=== PATIENT | male | born 1975 | race Caucasian/White ===

== ENCOUNTER 2018-12-17 02:12 | Outpatient (CLI) | payer BC, SELFPAY ==
[2018-12-18 15:58] LABS: T3,Free 3.7 pg/ml (2.8-5.3)
== END 2018-12-17 02:32 ==
PROVIDERS: PCP Family Medicine; Visit Provider Family Medicine
DX: R79.89 Other specified abnormal findings of blood chemistry (principal); E03.9 Hypothyroidism, unspecified
CPT/HCPCS: 36415; 84481

== ENCOUNTER 2019-07-18 02:15 | Outpatient (CLI) | payer BC, SELFPAY ==
[2019-07-18 17:28] LABS: T3,Free 4.2 pg/mL (2.8-5.3)
== END 2019-07-18 02:35 ==
PROVIDERS: PCP Family Medicine; Visit Provider Family Medicine
DX: E07.89 Other specified disorders of thyroid; R79.89 Other specified abnormal findings of blood chemistry
CPT/HCPCS: 36415; 84481

== ENCOUNTER 2020-08-21 03:30 | Outpatient (CLI) | payer BC, SELFPAY ==
[2020-08-21 11:59] LABS: Hemoglobin A1C 5.9 % (<5.7)
[2020-08-21 12:20] LABS: Calculated LDL 148 mg/dL (<100); Cholesterol 211 mg/dL (<200); HDL Cholesterol 45 mg/dL (40-60); TSH (W/Ref FT4) 0.49 uIU/mL (0.36-3.74); Triglyceride 92 mg/dL (<150)
== END 2020-08-21 03:31 | disposition home or self-care (01) ==
LOC: LBO 03:30
PROVIDERS: PCP Nurse Practitioner; Visit Provider Nurse Practitioner
DX: E03.9 Hypothyroidism, unspecified (principal); Z13.1 Encounter for screening for diabetes mellitus; Z13.220 Encounter for screening for lipoid disorders
CPT/HCPCS: 36415; 80061; 83036; 84443

== ENCOUNTER → 2020-12-20 10:34 | Outpatient (CLI) | payer BC, SELFPAY ==
--- NOTE | 2020-12-20 10:45 | DI.RAD_ITS ---
Exam(s) XR ELBOW RT COMPLETE EXAM: XR ELBOW RT COMPLETE CLINICAL HISTORY: bursitis. TECHNIQUE: 2D digital imaging was performed. COMPARISON: No exams were available for comparison FINDINGS: There is no evidence of fracture or elbow joint effusion. However, there is significant abnormal sof t tissue swelling posterior to the elbow joint and extending down the dorsal aspect of the forearm, e ither posttraumatic or inflammatory. There is no radiopaque foreign body no radiographic evidence of osteomyelitis. IMPRESSION: Prominent dorsal soft tissue swelling at and below the level of the olecranon bursa. No fracture evident. No obvious elbow joint effusion DATA REPOSITORY: RADIATION DOSE DELIVERED:
--- NOTE | 2020-12-20 11:45 | DI.VRAD_ITS ---
PROCEDURE INFORMATION: Exam: XR Right Elbow Exam date and time: 12/20/2020 10:55 AM Age: 45 years old Clinical indication: Other: 3 TECHNIQUE: Imaging protocol: XR Right elbow. Views: 3 or more views. COMPARISON: No relevant prior studies available. FINDINGS: Bones/joints: There is mild joint effusion suspected. No acute fracture or dislocation. Soft tissues: There is a moderate posterior elbow soft tissue swelling. IMPRESSION: 1. No definite acute fracture or dislocation. 2. Soft tissue swelling of the elbow. Dictated and Authenticated by: August Rivero MD. Ordering:LIZA Damon MD
== END ==
PROVIDERS: PCP Nurse Practitioner; Visit Provider Nurse Practitioner Family
DX: M79.89 Other specified soft tissue disorders (principal)
CPT/HCPCS: 73080

== ENCOUNTER 2020-12-20 16:02 | Outpatient (REF) | payer BC, SELFPAY ==
[2020-12-20 16:32] LABS: Abs Immature Grans 0.05 10^3/uL (0.0-0.06); Absolute Basophil Count 0.05 10^3/uL (0.0-0.2); Absolute Eosinophil Count 0.64 10^3/uL (0.0-0.7); Absolute Lymphocyte Count 2.97 10^3/uL (1.2-3.4); Absolute Monocyte Count 0.64 10^3/uL (0.1-0.8); Absolute Neutrophil Count 5.64 10^3/uL (1.2-6.7); Basophils % 0.5; Eosinophils % 6.4; HCT 45.2 % (40.0-50.0); Immature Grans % 0.5; Lymphocytes % 29.7; MCH 31.5 pg (27.0-33.0); MCHC 33.2 % (32.0-36.0); MPV 10.2 fL (8.0-11.0); Monocytes % 6.4; Neutrophils % 56.5; Nucleated RBC 0 %; Platelet Count 316 10^3/uL (130-400); RBC 4.76 10^6/uL (4.36-5.78); RDW 12.4 % (11.8-14.1); RDW-SD 43.2 fL; WBC 9.99 10^3/uL (4.4-10.8)
[2020-12-20 16:34] LABS: ESR 11 mm/hr (0-15)
[2020-12-20 16:39] LABS: C-Reactive Protein 0.27 mg/dL (0.0-0.3); Glucose 98 mg/dL (74-106)
== END 2020-12-20 16:03 | disposition home or self-care (01) ==
LOC: LBN 16:02
PROVIDERS: PCP Nurse Practitioner; Visit Provider Nurse Practitioner Family
DX: M70.31 Other bursitis of elbow, right elbow (principal); R73.09 Other abnormal glucose; M71.88 Other specified bursopathies, other site
CPT/HCPCS: 82947; 85652; 85025; 86140

== ENCOUNTER 2021-07-01 09:54 | Outpatient (REF) | payer BC, SELFPAY ==
[2021-07-02 13:20] LABS: COVID-19 RT-PCR UVMMC Result Negative (Negative)
== END 2021-07-01 09:55 | disposition home or self-care (01) ==
LOC: LBN 09:54
PROVIDERS: PCP Nurse Practitioner; Visit Provider Family Medicine
DX: Z20.822 Contact with and (suspected) exposure to COVID-19 (principal); J02.9 Acute pharyngitis, unspecified
CPT/HCPCS: U0003

== ENCOUNTER 2022-02-18 03:26 | Outpatient (CLI) | payer BC, SELFPAY ==
[2022-02-18 11:21] LABS: Hemoglobin A1C 5.8 % (<5.7)
[2022-02-18 11:59] LABS: Calculated LDL 149 mg/dL (<100); Cholesterol 223 mg/dL (<200); HDL Cholesterol 51 mg/dL (40-60); TSH (W/Ref FT4) 1.06 uIU/mL (0.36-3.74); Triglyceride 116 mg/dL (<150)
== END 2022-02-18 03:27 | disposition home or self-care (01) ==
LOC: LBO 03:26
PROVIDERS: PCP Nurse Practitioner; Visit Provider Nurse Practitioner
DX: R73.03 Prediabetes (principal)
CPT/HCPCS: 36415; 80061; 83036; 84443

== ENCOUNTER 2022-10-29 11:54 | Day surgery (SDC) | payer BC, SELFPAY ==
--- NOTE | 2022-10-28 20:24 | PDOC.DSDIS_ITS ---
Date of service: 10/29/22 Time of Service: 13:49 Discharge Plan Disposition Patient Disposition: Home Condition: Good Discharge Details Reason For Visit: colon scope Attending Provider: Leonie Pringle Primary Care Provider: Connie Montanez Home Meds and New Rx's Prescriptions: Continued levothyroxine 175 mcg tablet 175 mcg PO DAILY Qty: 90 4RF venlafaxine 75 mg capsule,extended release 24hr 75 mg PO DAILY Qty: 90 4RF sildenafil (pulm.hypertension) 20 mg tablet 20 mg PO DAILY PRN (Reason: sexual activity) Qty: 14 3RF glucosamine sulfate [Glucosamine] 500 mg tablet 500 mg PO DAILY Rx Instructions: administer with a meal multivitamin 1 EACH tablet 1 ea PO DAILY Discontinued bisacodyl [Dulcolax (bisacodyl)] 5 mg tablet,delayed release (DR/EC) 5 mg PO ONCE Qty: 4 0RF Rx Instructions: Take according to provider's instructions for colonoscopy prep. polyethylene glycol 3350 17 gram/dose powder 17 g PO ONCE Qty: 238 0RF Rx Instructions: To be taken as directed by prescriber's office for colonoscopy prep. Discharge Instructions Additional Instructions: D[facility] Colonoscopy Post- Op Instructions Instructions for Everyone who is given Anesthesia: For your safety, please do the following for the next twenty-four (24) hours: *Do Not operate a motor vehicle (car, truck, motorcycle, etc.) *Do Not drink alcoholic beverages or use any recreational drugs for the first 24 hours or while taking pain medications. The medications in your body may have a reaction that can be dangerous. *Do Not make any important decisions or sign any important papers. Findings: diverticuli- mild. Make sure you are moving your bowels on a regular basis and not straining. If you find that you do have some constipation, I recommend you start a fiber supplement daily such as Metamucil. small polyp Follow up: My office will send a letter with the results of the pathology report, and when to repeat the colonoscopy, most likely 7 years time. 1. No lifting over 20 pounds or strenuous activity for the first 24 hours after your procedure. After 24 hours there are no restrictions on your activity but you may feel fatigued for a few days. 2. After you arrive home you may have a light meal and return to your normal diet as you can tolerate it without feeling sick to your stomach. 3. You may have a bloated, gaseous feeling in your belly (abdomen) after a colonoscopy. Passing gas and belching will help. Walking or lying down on your left side with your knees flexed may relieve the discomfort. Call the office at [phone] (Office) or [phone] (Hospital) right away if you notice any of the following: a.Vomiting of blood or ?coffee ground stools?. b.Rectal bleeding 1Tbsp, blood clots or continuous bleeding. c.Severe belly (abdominal) pain. d.A hard distended belly (abdomen) and an inability to pass gas. 4. Please don?t expect to have a normal BM (bowel movement) for 2-3 days after your procedure. 5. If there are questions regarding the findings of your procedure, please contact your doctor 6. If you are unable to contact your doctor with a problem, contact the hospital at [phone]. 7. Continue all your regular medications unless directed otherwise. I understand the above instructions and have no questions. Signature of Patient or Adult Escort Name of Responsible Adult Escort Signature of Nurse Date/Time Activity:: see above Diet:: see above Discharge Orders Discharge Orders: Discharge Order (Routine); Ordered 10/29/22 Ordered By: Leonie Pringle DS: Diagnosis Discharge Diagnosis (1) Screening for colon cancer: Status: Acute Asessment and Plan: The patient is seen and examined after their colonoscopy.? The patient has been able to pass gas.? They are not having abdominal pain.? They have been able to tolerate liquids and a snack.? They do not have any nausea or vomiting.? They are not having any chest pain or shortness of breath.??? They are not having any rectal bleeding..? Their vital signs have been stable-see nursing notes. We discussed findings during their colonoscopy, and any biopsies that were done/polyps that were removed. The patient will be sent a letter with any biopsy results, and when to repeat the colonoscopy.-see discharge instructions. Patient was given explicit instructions to follow-up regarding colonoscopy-refer to discharge instructions.? We reviewed resumption of medications. Patient verbalized understanding and discharged in stable and satisfactory condition- See nursing notes. (2) Personal history of nicotine dependence: Status: Acute (3) Hypothyroidism: Status: Chronic (4) Prediabetes: Status: Acute (5) Hyperlipidemia: Status: Acute
--- NOTE | 2022-10-29 08:53 | W.COLOREPORT ---
Date of service: 10/29/22 Time of Service: 08:53 Colonoscopy Report Date of procedure: 10/29/22 Pre-op diagnosis general: CRC screening Post-op diagnosis procedure note: other (x1 polyp and minor diverticula ) Surgeon: Leonie Pringle Anesthesia Type: General:No Airway Estimated blood loss (mL): 1 Pathology: other Complications: None Disposition: same day Prep: Miralax/Dulcolax Retraction Time: 13 Procedure Description: After informed consent was obtained the patient was taken to the procedure room and placed in a left decubitous position. Monitors were applied and a time out was done. The patients name, date of , procedure, allergies to medications and metal in their body was reviewed. The patient was then sedated. Once sedated and comfortable a rectal exam was done. External exam was normal. Internal exam revealed a normal sphincter tone and no palpable masses. The prostate nl. The scope was then introduced and retrofelexed. No internal hemorrhoids were identified. The scope was then advanced to the cecum without difficulty. The TI and appendiceal orifice were identified. The prep was BBPS 3 in all segments for a total of 9. The scope was then slowly retracted over 13 minutes back into the rectum. Polyps were removed at x1 polyp removed at 40 cm. It was a flat 5 mm polyp. All specimen is retrieved and no bleeding is noted. He has a few small scattered diverticula in the sigmoid colon. It is very minor disease. There are no signs of active bleeding or infection. The mucosa is pink and healthy with a normal vascular pattern. The scope was removed and the patient was woken up and taken back to Same day surgery in stable condition. The patient tolerated the procedure well and there were no immediate complications. Follow up: The patient should follow up in 7-10 years unless they develop changes in bowel habits or other new gastrointestinal complaints.
[2022-10-29 12:07] VITALS: BP 125/78; PULSE 55; RESP 17; TEMP 36.4; O2SAT 98
[2022-10-29] MEDS: Lactated Ringers 1,000 ML 80 ML IV (12:41)
--- NOTE | 2022-10-29 12:51 | W.ANESPRE ---
General Info Date of Service Date Performed: 10/29/22 Height: 6 ft 3 in Weight: 87.5 kg Body Mass Index (BMI): 24.0 Surgical Procedure: Operation Date: 10/29/22 12:20 Proposed Procedure Side Surgeon den Pringle, Meds Allergies and Home Medications Allergies Allergy/AdvReac Type Severity Reaction Status Date / Time No Known Allergies Allergy Verified 10/29/22 12:19 Home Medication Medication Instructions Recorded multivitamin 1 ea PO DAILY 03/29/13 levothyroxine 175 mcg tablet 175 mcg PO DAILY #90 tab-caps 09/06/22 sildenafil (pulm.hypertension) 20 20 mg PO DAILY PRN sexual activity 09/06/22 mg tablet #14 tabs venlafaxine 75 mg capsule,extended 75 mg PO DAILY #90 caps 09/06/22 release 24 hr glucosamine sulfate 500 mg tablet 500 mg PO DAILY 10/21/22 (Glucosamine) Current Visit Medications: Current Medications Generic Name Dose Route Start Last Admin Trade Name Freq PRN Reason Stop Dose Admin Hyoscyamine Sulfate 0.125 mg 10/29/22 08:23 Hyoscyamine 0.125 Mg Sl/Oral/Chew SL DIRECTED PRN Ringer's Solution 1,000 mls @ 80 mls/hr 10/29/22 06:00 10/29/22 12:41 IV 10/29/22 23:59 80 mls/hr INFUSION PAT Administration IV Miscellaneous Supplies 1 each 10/29/22 06:00 Iv Access IV 10/29/22 23:59 DIRECTED PAT Ondansetron HCl 4 mg 10/29/22 08:23 Ondansetron 4 Mg/2 Ml Vial IVP Q4H PRN PRN Nausea / Vomiting Sodium Chloride 0 ml 10/29/22 06:00 Normal Saline Flush 10 Ml Syr IV 10/29/22 23:59 PRN PRN Sodium Chloride 0 ml 10/29/22 06:00 Normal Saline 10 Ml Vial IJ 10/29/22 23:59 DIRECTED PRN Sterile Water 0 ml 10/29/22 06:00 Water,Injection,Sterile 10 Ml Vial IJ 10/29/22 23:59 DIRECTED PRN PFSH Active Problems Active Problems: Problem Status Onset Code Screening for colon cancer Z12.11 Personal history of nicotine dependence Z87.891 Hypothyroidism E03.9 Depressive disorder F32.9 Anxiety F41.9 Erectile dysfunction N52.9 Prediabetes R73.03 Hyperlipidemia E78.5 Medical History Medical History Disruption of wound, unspecified, initial encounter (05/26/17) Tobacco Smoking/Tobacco Use Status: Current every day Tobacco Type: smokeless tobacco Smokeless tobacco user: snuff Passive smoking exposure: Yes Second hand exposure: Yes Alcohol Alcohol Intake: current Alcohol intake frequency: a few times a month Alcohol type: beer Substance Use Substance use: Daily Substance use type: marijuana Vital Signs and Lab Results Vital Signs Most Recent Vital Signs in EMR: Most Recent Vital Signs Temp Pulse Resp BP Pulse Ox 36.4 C L 55 L 17 125/78 98 10/29/22 12:07 10/29/22 12:07 10/29/22 12:07 10/29/22 12:07 10/29/22 12:07 Lab Results Blood Type / Crossmatch: No Data to Display Complete Blood Count: No Data to Display Complete Metabolic Panel: No Data to Display Liver Function Panel: No Data to Display Coagulation Panel: No Data to Display Cardiac Panel: No Data to Display Arterial Blood Gas: No Data to Display Venous Blood Gas: No Data to Display Pancreas Panel: No Data to Display Thyroid Panel: No Data to Display Infectious Disease: No Data to Display Blood Cultures: No Data to Display Toxicology Panel: No Data to Display Anesthesia Assessment and Plan Anesthesia History Personal History: No History of Anesthesia Complications Family History: No Family History of Anesthesia Complications Exercise Tolerance Exercise Tolerance: Metabolic Equivalents>4 Pertinent Negatives Pertinent Negatives: No Symptoms of GERD Cardiac & Pulmonary Exam Cardiac Exam: Normal S1/S2 Heart Sounds Pulmonary Exam: Clear Bilateral Breath Sounds Implantable Cardiac Device Does patient have a Pacemaker or an ICD?: No Airway Exam Known Difficult Airway: No Mallampati Class: 2 Mouth Opening: Normal (> 3cm) Thyromental Distance: Greater than 3 cm Neck Range of Motion: Full ROM Neck Circumference: Normal Teeth Condition: Normal Dentition ASA Classification ASA Score: ASA 2 Emergency Case?: No NPO Status NPO Status: NPO Clears >2 hours, Solids >8 hours Anesthesia Plan Resuscitation Status: Full Code Anesthesia Technique: General Anesthesia Airway Planned: Natural Airway Monitors Used: Standard Monitors
[2022-10-29 12:54] VITALS: BMI 24.0
--- NOTE | 2022-10-29 13:25 | BOWEL_PTH ---
PATIENT: Siddharth Scott LOC: [facility] U#:[id number] AGE/SX: 47/M ROOM: RE10/29/[address]: Leonie Pringle : 1975 BED: DIS: 10/29/2022 SPEC #: [id number] RECD: 10/29/22 17:36 STATUS: SABRINA RE #: [id number] FERNANDO: 10/29/22 13:[address]: Leonie rPingle DEPT: Surgical Specimen RECD BY: Soledad Hussein ENTERED: 10/29/22 17:36 SP TYPE: Bowel OTHR DR: Connie Montanez, SCALER Tissues: 1 - BIOPSY BOWEL Procedures: GROSS AND MICRO LEVEL 4 Comments: [id number]
[2022-10-29 13:32] VITALS: BP 114/89; PULSE 53; RESP 16; TEMP 36.6; O2SAT 100
--- NOTE | 2022-10-29 13:44 | W.ANESPOSTOP ---
Postoperative Evaluation Date, Time and Location Date Performed: 10/29/22 Time Performed: 13:44 Patient Location: Day Surgery Unit Vital Signs Most Recent Imported Vital Signs: Most Recent Vital Signs Temp Pulse Resp BP Pulse Ox 36.6 C 53 L 16 114/89 100 10/29/22 13:32 10/29/22 13:32 10/29/22 13:32 10/29/22 13:32 10/29/22 13:32 Pain Score Most Recent Pain Score: Most Recent Pain Score Pain Level 0 10/29/22 13:32 Assessment Mental Status: Awake (Alert & Oriented to Patient Baseline) Airway and Respiratory Function: Patent airway with normal (patient baseline) respiratory exam Cardiovascular Function: Hemodynamically Stable Hydration Status: Adequately Hydrated Nausea & Vomiting: No Nausea or Vomiting Pain: Pt. Denies Any Pain Peripheral Nerve Block: Patient did not receive a nerve block
[2022-10-29 14:05] VITALS: BP 124/84; PULSE 90; RESP 16; TEMP 36.1; O2SAT 96
== END 2022-10-29 14:24 | disposition home or self-care (01) ==
PROVIDERS: PCP Nurse Practitioner Family; Visit Provider Surgery
PROC: 0DJD8ZZ Inspection of Lower Intestinal Tract, Via Natural or Artificial Opening Endoscopic (ICD-10-PCS; CPT 45378; principal; 2022-10-29 12:15)
DX: Z12.11 Encounter for screening for malignant neoplasm of colon (principal); K63.5 Polyp of colon; K57.30 Diverticulosis of large intestine without perforation or abscess without bleeding; K63.89 Other specified diseases of intestine
CPT/HCPCS: 45380; 88305; J2250

== ENCOUNTER 2022-12-31 01:06 | Outpatient (CLI) | payer BC, SELFPAY ==
--- NOTE | 2022-12-31 07:55 | DI.RAD_ITS ---
Exam(s) XR ELBOW RT COMPLETE EXAM: XR ELBOW RT COMPLETE CLINICAL HISTORY: right elbow pain, M25.521. TECHNIQUE: 2D digital imaging was performed. Three views. COMPARISON: CR,XR XR ELBOW RT COMPLETE from 12/20/2020 FINDINGS: BONES: No acute fracture is present. No bony destructive lesion is seen. JOINTS: The elbow is normally aligned. No joint effusion is seen. No joint space narrowing. SOFT TISSUE: Normal. IMPRESSION: Unremarkable radiographs of the right elbow. DATA REPOSITORY: RADIATION DOSE DELIVERED:
== END 2022-12-31 01:26 ==
LOC: DI 01:06
PROVIDERS: PCP Nurse Practitioner Family; Visit Provider Nurse Practitioner Family
DX: M25.521 Pain in right elbow (principal)
CPT/HCPCS: 73080

== ENCOUNTER 2022-12-31 10:47 | Outpatient (CLI) | payer BC, SELFPAY ==
[2022-12-31 09:09] LABS: TSH (W/Ref FT4) 0.47 uIU/mL (0.36-3.74)
== END 2022-12-31 10:48 | disposition home or self-care (01) ==
LOC: LBO 10:47
PROVIDERS: PCP Nurse Practitioner Family; Visit Provider Nurse Practitioner Family
DX: E03.9 Hypothyroidism, unspecified (principal)
CPT/HCPCS: 36415; 84443

== ENCOUNTER 2023-07-13 13:14 | Outpatient (REF) | payer BC, SELFPAY | END 2023-07-13 13:15 | disposition home or self-care (01) | LOC: LBN 13:14 | PROVIDERS: PCP Nurse Practitioner Family; Visit Provider Physician Assistant | DX: J02.9 Acute pharyngitis, unspecified (principal) | CPT/HCPCS: 87070 ==

== ENCOUNTER 2023-09-12 08:26 | Outpatient (CLI) | payer BC, SELFPAY ==
[2023-09-12 12:31] LABS: HCT 44.5 % (40.0-50.0); HGB 15.3 g/dL (13.5-17.5); MCH 31.4 pg (27.0-33.0); MCHC 34.4 % (32.0-36.0); MCV 91 fL (80-95); MPV 9.9 fL (8.0-11.0); Platelet Count 349 10^3/uL (130-400); RBC 4.87 10^6/uL (4.36-5.78); RDW 12.6 % (11.8-14.1); RDW-SD 41.6 fL; WBC 12.79 10^3/uL (4.4-10.8)
[2023-09-12 12:59] LABS: ALT 52 U/L (16-63); AST 24 U/L (15-37); Albumin 4.1 g/dL (3.4-5.0); Alkaline Phosphatase 54 U/L (46-116); Anion Gap 11.4 mmol/L (3-11); BUN 14 mg/dL (7-18); Bilirubin, Total 0.3 mg/dL (0.2-1.0); CO2 24.6 mmol/L (21.0-32.0); CREATININE 1.1 mg/dL (0.70-1.30); Calcium 9.4 mg/dL (8.5-10.1); Calculated LDL 160 mg/dL (<100); Chloride 104 mmol/L (98-107); Cholesterol 237 mg/dL (<200); Estimated GFR 81.78 (mL/min/1.73m2); Glucose 131 mg/dL (74-106); HDL Cholesterol 54 mg/dL (40-60); Potassium 4.2 mmol/L (3.5-5.1); Sodium 140 mmol/L (136-145); TSH (W/Ref FT4) 0.22 uIU/mL (0.36-3.74); Total Protein 8.2 g/dL (6.4-8.2); Triglyceride 118 mg/dL (<150)
[2023-09-12 13:19] LABS: Hemoglobin A1C 5.7 % (<5.7)
[2023-09-12 13:27] LABS: FREE T4 1.16 ng/dL (0.76-1.46)
== END 2023-09-12 08:27 | disposition home or self-care (01) ==
LOC: LOS 08:26
PROVIDERS: PCP Nurse Practitioner Family; Referring Provider Nurse Practitioner Family; Visit Provider Nurse Practitioner Family
DX: Z87.891 Personal history of nicotine dependence (principal); E03.9 Hypothyroidism, unspecified; F41.9 Anxiety disorder, unspecified; N52.9 Male erectile dysfunction, unspecified; E78.5 Hyperlipidemia, unspecified; Z00.00 Encounter for general adult medical examination without abnormal findings
CPT/HCPCS: 36415; 80053; 80061; 85027; 83036; 84439; 84443

== ENCOUNTER 2024-09-18 10:19 | Outpatient (CLI) | payer BC, SELFPAY ==
[2024-09-18 12:42] LABS: HCT 42.2 % (40.0-50.0); HGB 13.8 g/dL (13.5-17.5); MCH 31.4 pg (27.0-33.0); MCHC 32.7 % (32.0-36.0); MCV 96 fL (80-95); MPV 9.7 fL (8.0-11.0); Platelet Count 330 10^3/uL (130-400); RBC 4.39 10^6/uL (4.36-5.78); RDW 12.4 % (11.8-14.1); RDW-SD 43.7 fL; WBC 11.68 10^3/uL (4.4-10.8)
[2024-09-18 13:09] LABS: ALT 32 U/L (16-63); AST 27 U/L (15-37); Albumin 4.1 g/dL (3.4-5.0); Alkaline Phosphatase 61 U/L (46-116); Anion Gap 9.1 mmol/L (3-11); BUN 18 mg/dL (7-18); Bilirubin, Total 0.4 mg/dL (0.2-1.0); CO2 29.9 mmol/L (21.0-32.0); CREATININE 0.9 mg/dL (0.70-1.30); Calcium 9.8 mg/dL (8.5-10.1); Calculated LDL 134 mg/dL (<100); Chloride 103 mmol/L (98-107); Cholesterol 209 mg/dL (<200); Glucose 99 mg/dL (74-106); HDL Cholesterol 57 mg/dL (>or=40); Potassium 4.1 mmol/L (3.5-5.1); Sodium 142 mmol/L (136-145); TSH (W/Ref FT4) 0.32 uIU/mL (0.36-3.74); Total Protein 8.1 g/dL (6.4-8.2); Triglyceride 91 mg/dL (<150)
[2024-09-18 13:20] LABS: Hemoglobin A1C 5.4 % (<5.7)
[2024-09-18 22:56] LABS: T4, Free 1.5 ng/dL (0.8-2.2)
== END 2024-09-18 10:20 | disposition home or self-care (01) ==
PROVIDERS: PCP Nurse Practitioner Family; Referring Provider Nurse Practitioner Family; Visit Provider Nurse Practitioner Family
DX: Z00.00 Encounter for general adult medical examination without abnormal findings (principal); F32.9 Major depressive disorder, single episode, unspecified; F41.9 Anxiety disorder, unspecified; E78.2 Mixed hyperlipidemia; R73.03 Prediabetes; E03.9 Hypothyroidism, unspecified
CPT/HCPCS: 36415; 80053; 80061; 85027; 83036; 84439; 84443